=== PATIENT | male | born 1960 | race Caucasian/White ===

== ENCOUNTER 2022-09-01 02:25 | Emergency (ER) | payer OTHER ==
[~2022-09-01] VITALS: Ht 185.4 cm; Wt 115.7 kg
[2022-09-01] MEDS ORDERED: ONDANSETRON 4MG INJ IVP ONE (02:30)
[2022-09-01 02:53] LABS: BASOPHILS % (AUTO) 0.5 % (0.0-5.0); EOSINOPHILS % (AUTO) 0.9 % (0.0-8.0); HEMATOCRIT 45.3 % (42-54); LYMPHOCYTES % (AUTO) 7.8 % (21.0-51.0); MEAN CORPUSCULAR HEMOGLOBIN 30.3 pg (27.0-33.0); MEAN CORPUSCULAR VOLUME 94.8 fL (79-99); NEUTROPHILS % (AUTO) 82.3 % (40.0-77.0); PLATELET COUNT (AUTO) 232 K/uL (130-400); RED BLOOD CELL COUNT(AUTO) 4.78 MIL/uL (4.50-6.20); RED CELL DISTRIBUTION WIDTH 13.7 % (11.0-15.5); WHITE BLOOD COUNT (AUTO) 10.9 K/uL (4.8-10.8)
[2022-09-01] MEDS ORDERED: 0.9%NACL 1000ML 1,000 ML IV ONE (03:00)
[2022-09-01 03:03] LABS: CREATININE 0.9 mg/dL (0.5-1.5); POTASSIUM 3.8 mmol/L (3.5-5.1)
[2022-09-01 03:07] LABS: ALBUMIN 3.4 g/dL (3.5-5.0); TOTAL PROTEIN, SERUM 7.3 g/dL (6.0-8.3)
[2022-09-01 04:32] VITALS: BP 171/86
[2022-09-01] MEDS ORDERED: ONDA4TAB10 PO (05:42)
[2022-09-01] MEDS ORDERED: HYOS0.124 SL (05:42)
== END 2022-09-01 06:17 | disposition home or self-care (01) ==
LOC: EDH 02:25
DX: E86.9 Volume depletion, unspecified (principal); R10.10 Upper abdominal pain, unspecified; R11.10 Vomiting, unspecified
CPT/HCPCS: 99284; 80053; 83690; 85025; 36415; 74176; 96374; J2405

== ENCOUNTER 2022-09-14 02:22 | Emergency (ER) | payer OTHER ==
[~2022-09-14] VITALS: Ht 188 cm; Wt 163.3 kg
[~2022-09-14 02:22] MED LIST: HYOS0.124 SL; ONDA4TAB10 PO
[2022-09-14 02:57] LABS: BASOPHILS % (AUTO) 0.4 % (0.0-5.0); HEMATOCRIT 43.1 % (42-54); LYMPHOCYTES % (AUTO) 12.4 % (21.0-51.0); MEAN CORPUSCULAR HEMOGLOBIN 30.3 pg (27.0-33.0); MEAN CORPUSCULAR HGB CONC 32.5 g/dL (32.0-36.0); MEAN CORPUSCULAR VOLUME 93.3 fL (79-99); MONOCYTES % (AUTO) 10.3 % (3.0-13.0); NEUTROPHILS % (AUTO) 73.6 % (40.0-77.0); PLATELET COUNT (AUTO) 261 K/uL (130-400); RED BLOOD CELL COUNT(AUTO) 4.62 MIL/uL (4.50-6.20); RED CELL DISTRIBUTION WIDTH 13.8 % (11.0-15.5)
[2022-09-14 03:05] LABS: CREATININE 0.8 mg/dL (0.5-1.5); POTASSIUM 4.1 mmol/L (3.5-5.1)
[2022-09-14 03:09] LABS: TOTAL PROTEIN, SERUM 6.7 g/dL (6.0-8.3)
[2022-09-14] MEDS ORDERED: 0.9%NACL 1000ML 1,000 ML IV ONE (03:30)
[2022-09-14 04:05] LABS: APPEARANCE,URINE CLEAR (CLEAR); BILIRUBIN,URINE NEGATIVE (NEGATIVE); COLOR,URINE COLORLESS (YELLOW); GLUCOSE, URINE (UA) NEGATIVE (NEGATIVE); KETONES,URINE NEGATIVE (NEGATIVE); LEUKOCYTE ESTERASE ,URINE 25 Leu/uL (NEGATIVE); NITRATE,URINE 2+ (NEGATIVE); OCCULT BLOOD,URINE NEGATIVE (NEGATIVE); PH,URINE 5.5 (5.0-8.0); PROTEIN,URINE NEGATIVE (NEGATIVE); UROBILINOGEN,URINE 0.2 mg/dL (0.2-1.0)
[2022-09-14 04:53] LABS: BACTERIA,URINE MANY /HPF (None Seen); MUCUS,URINE RARE LPF (None Seen)
[2022-09-14] MEDS ORDERED: CEFTRIAXONE 1G VIAL IVP ONE (05:00)
[2022-09-14] MEDS ORDERED: CIPR-278 PO (06:56)
[2022-09-14] MEDS ORDERED: ONDANSETRON 4MG INJ IVP ONE (07:30)
[2022-09-14 08:29] VITALS: BP 145/89
== END 2022-09-14 08:31 | disposition home or self-care (01) ==
LOC: EDH 02:22
DX: N39.0 Urinary tract infection, site not specified (principal); R42 Dizziness and giddiness; I10 Essential (primary) hypertension; Z20.822 Contact with and (suspected) exposure to COVID-19; Z98.890 Other specified postprocedural states
CPT/HCPCS: 99285; 84484; 80053; 83880; 85025; 87077; 87088; 87186; 81001; 36415; 87635; 71045; 96374; 96361; 96375; 93005; C9803; J7030; J0696; J2405

== ENCOUNTER 2022-09-15 20:13 | Emergency (ER) | payer OTHER ==
[~2022-09-15] VITALS: Ht 188 cm; Wt 139.7 kg
[~2022-09-15 20:13] MED LIST changes: +CIPR-278 PO
[2022-09-15] MEDS: MAGNESIUM HYDROXIDE 30 ML/UDCUP PO PRN (21:01)
[2022-09-15 21:23] VITALS: BP 171/89
[2022-09-15] MEDS: PEG 3350/NA SULF,BICARB,CL/KCL 4000 ML SOLN PO ONE (21:40)
== END 2022-09-15 23:23 | disposition home or self-care (01) ==
LOC: EDH 20:13
DX: K59.00 Constipation, unspecified (principal); Z98.890 Other specified postprocedural states; Z79.899 Other long term (current) drug therapy
CPT/HCPCS: 82948

== ENCOUNTER 2024-04-22 12:10 | Emergency (ER) | payer OTHER ==
[~2024-04-22] VITALS: Ht 188 cm; Wt 113.4 kg
[~2024-04-22 12:10] MED LIST changes: +ASPI-1443 PO; -CIPR-278 PO; +CLOP75TA32 PO; -HYOS0.124 SL; -ONDA4TAB10 PO; +ROSU10TA72 PO
[2024-04-22] MEDS: GLYCERIN ADULT SUPP.RECT RC ONE (14:06)
[2024-04-22] MEDS: POLYETHYLENE GLYCOL 3350 17 GM POWD.PACK PO ONE (14:06)
[2024-04-22] MEDS ORDERED: POLY17PO4 PO (14:14)
[2024-04-22] MEDS ORDERED: DOCU-116 PO (14:14)
[2024-04-22] MEDS ORDERED: SODI133E14 RC (14:14)
[2024-04-22 14:38] VITALS: BP 123/81; PULSE 73; RESP 18; O2SAT 100
== END 2024-04-22 14:43 | disposition home or self-care (01) ==
LOC: EDH 12:10
DX: K59.00 Constipation, unspecified (principal); I50.9 Heart failure, unspecified; E78.00 Pure hypercholesterolemia, unspecified; Z79.82 Long term (current) use of aspirin; Z79.899 Other long term (current) drug therapy; Z98.890 Other specified postprocedural states

== ENCOUNTER 2024-06-04 21:32 | Emergency (ER) | payer OTHER ==
[~2024-06-04 21:32] MED LIST changes: +DOCU-116 PO; +POLY17PO4 PO; +SODI133E14 RC
[2024-06-04 22:36] LABS: BASOPHILS # (AUTO) 0.04 K/uL (0.00-0.20); BASOPHILS % (AUTO) 0.4 % (0.0-5.0); EOSINOPHILS # (AUTO) 0.11 K/uL (0.00-0.70); EOSINOPHILS % (AUTO) 1.2 % (0.0-8.0); HEMATOCRIT 43.8 % (42-54); IMMATURE GRANULOCYTE ABSOLUTE 0.03 K/uL (0-1); LYMPHOCYTES # (AUTO) 1.4 K/uL (1.0-4.8); LYMPHOCYTES % (AUTO) 14.6 % (21.0-51.0); MEAN CORPUSCULAR HEMOGLOBIN 30.9 pg (27.0-33.0); MEAN CORPUSCULAR HGB CONC 33.3 g/dL (32.0-36.0); MEAN CORPUSCULAR VOLUME 92.6 fL (79-99); MONOCYTES # (AUTO) 0.6 K/uL (0.1-1.0); MONOCYTES % (AUTO) 6.1 % (3.0-13.0); NEUTROPHILS # (AUTO) 7.3 K/uL (1.8-7.7); NEUTROPHILS % (AUTO) 77.4 % (40.0-77.0); PLATELET COUNT (AUTO) 266 K/uL (130-400); RED BLOOD CELL COUNT(AUTO) 4.73 MIL/uL (4.50-6.20); RED CELL DISTRIBUTION WIDTH 13.9 % (11.0-15.5); WHITE BLOOD COUNT (AUTO) 9.4 K/uL (4.8-10.8)
[2024-06-04 22:37] VITALS: BP 167/98; PULSE 90; RESP 18; TEMP 97.8; O2SAT 99
[2024-06-04 22:41] LABS: APPEARANCE,URINE CLEAR (CLEAR); BILIRUBIN,URINE NEGATIVE (NEGATIVE); COLOR,URINE COLORLESS (YELLOW); GLUCOSE, URINE (UA) NEGATIVE (NEGATIVE); KETONES,URINE NEGATIVE (NEGATIVE); LEUKOCYTE ESTERASE ,URINE 75 Leu/uL (NEGATIVE); NITRATE,URINE 2+ (NEGATIVE); OCCULT BLOOD,URINE NEGATIVE (NEGATIVE); PROTEIN,URINE NEGATIVE (NEGATIVE); UROBILINOGEN,URINE 0.2 mg/dL (0.2-1.0)
[2024-06-04 22:42] LABS: ADD UA MICROSCOPIC YES
[2024-06-04 22:43] LABS: BACTERIA,URINE RARE /HPF (None Seen); RBC,URINE 0-1 /HPF (0-1)
[2024-06-04 22:45] LABS: CARBON DIOXIDE 23 mmol/L (21-32); CHLORIDE 104 mmol/L (101-111); CREATININE 0.9 mg/dL (0.5-1.3); GLOMERULAR FILTR. RATE CALC 95 mL/min (>90); GLUCOSE,RANDOM 99 mg/dL (70-105); SODIUM SERUM 138 mmol/L (136-145); UREA NITROGEN, BLOOD 15 mg/dL (7-18)
[2024-06-04 22:47] LABS: ALCOHOL, BLOOD < 3 mg/dL (0-10); AMMONIA 14 umol/L (11-32)
[2024-06-04 22:49] LABS: AMPHET/METH SCREEN,URINE NEGATIVE (NEGATIVE); BARBITURATE SCREEN, URINE NEGATIVE (NEGATIVE); BENZODIAZEPINES SCREEN,URINE NEGATIVE (NEGATIVE); CANNABINOID SCREEN,URINE NEGATIVE (NEGATIVE); COCAINE SCREEN,URINE NEGATIVE (NEGATIVE); OPIATE SCREEN,URINE NEGATIVE (NEGATIVE); PHENCYCLIDINE SCREEN,URINE NEGATIVE (NEGATIVE)
--- NOTE | 2024-06-04 23:24 | ERN ---
General Chief Complaint: Other Problems Stated Complaint: SENT IN FOR EVALUATION BY KRYSTINA RIDER Time Seen by MD: 21:41 Time Seen by Midlevel: 21:41 Source: patient, police, EMS History of Present Illness Initial Comments Patient is a 63-year-old male being brought in via EMS and escorted by PD for a wellness examination. According to the police department patient was driving erratically so he was pulled over and sent to the ER for further evaluation. On arrival patient has no complaints. Allergies: Coded Allergies: No Known Drug Allergies (Unverified Allergy, Unknown, 09/01/22) Home Meds Active Scripts Na Phos,M-B/Na Phos,Di-Ba (Enema Ready To Use) 19 Gram-7 Gram/118 Ml Enema, 133 ML RC ONCE, #1 ENEMA Prov:YASMINE DRAKE 04/22/24 Polyethylene Glycol 3350 (Miralax) 17 Gram Powd.pack, 17 GM PO DAILY for constipation for 20 Days, #20 PACKET 0 Refills Prov:YASMINE DRAKE 04/22/24 Docusate Sodium (Colace) 100 Mg Capsule, 100 MG PO TID for constipation for 10 Days, #30 CAP 0 Refills Prov:YASMNIE DRAKE 04/22/24 Reported Medications Rosuvastatin Calcium (Rosuvastatin Calcium) 10 Mg Tablet, 1 TAB PO HS 12/16/23 Aspirin (Aspirin EC) 81 Mg Tablet.dr, 81 MG PO HS, TAB 11/08/23 Clopidogrel Bisulfate (Clopidogrel) 75 Mg Tablet, 75 MG PO HS, TAB 11/08/23 Past Medical History Past Medical History: CHF, High Cholesterol Past Surgical History: Other Surgical History Other: NECK FUSION, 2 STENTS IN NECK Family History Family History: Negative Social History Social History: Negative, Other ROS Dictation CONSTITUTIONAL: Negative except for HPI HEAD/FACE: Negative except for HPI EENT: Negative except for HPI RESPIRATORY: Negative except for HPI GASTROINTESTINAL/ABDOMINAL: Negative except for HPI GENITOURINARY: Negative except for HPI MUSCULOSKELETAL: Negative except for HPI INTEGUMENTARY: Negative except for HPI NEUROLOGICAL/PSYCH: Negative except for HPI HEMATOLOGIC/LYMPHATIC: Negative except for HPI All Systems Negative, Except as noted above. 13 point review of systems assessed and all negative except for above. Physical Exam Physical Exam Dictation Vital Signs reviewed General Appearance: Alert, oriented x 3, no acute distress, well developed, nourished. Head and Face: non-traumatic. Eyes: PERRL, pink conjunctivas, eyelid no trauma, anterior chamber with arcus senilis. Ears: Pinnas intact and no signs of trauma or erythema ear canals clear and no discharge TM no erythema Nose: No discharge, no bleeding. Oropharynx: Mouth normal, tongue pink, pharynx clear,no erythema, tonsils no exudates, no abscesses noted, mucous membrane moist Neck: Supple, non-tender, no thyromegaly, no masses, no JVD, no bruits Breast:Deferred Chest:No tenderness, no crepitus, no paradoxical movement, no retractions Lungs:Clear, well-ventilated, symmetric, no rales, no wheezing, no rhonchi, no stridor, good breath sounds bilaterally Heart: Regular rate, regular rhythm, no murmur, no gallops Vascular: no peripheral edema, Abdomen: Soft, positive bowel sounds, nondistended, no guarding, nontender, no rebound, no masses no hepatomegaly, no splenomegaly, no De León's sign, no hernias. Rectal: Deferred Genital: Deferred Neurological: Normal speech, motor function intact, sensory function intact , flight of ideas Musculoskeletal: Neck nontender, full range of motion, back nontender, full range of motion, Extremities: nontender, full range of motion Skin: Color pink, dry, no turgor, no rash, no lacerations, no abrasions, no contusions. Lymphatic: Deferred Results Laboratory and Microbiology Lab and Micro Result Laboratory Tests Test 06/04/24 22:26 White Blood Count 9.4 K/uL (4.8-10.8) Red Blood Count 4.73 MIL/uL (4.50-6.20) Hemoglobin 14.6 g/dL (14.0-18.0) Hematocrit 43.8 % (42-54) Mean Corpuscular Volume 92.6 fL (79-99) Mean Corpuscular Hemoglobin 30.9 pg (27.0-33.0) Mean Corpuscular Hemoglobin Concent 33.3 g/dL (32.0-36.0) Red Cell Distribution Width 13.9 % (11.0-15.5) Platelet Count 266 K/uL (130-400) Mean Platelet Volume 10.3 fL (7.5-10.5) Immature Granulocyte % (Auto) 0.3 % (0-1) Neutrophils (%) (Auto) 77.4 % (40.0-77.0) H Lymphocytes (%) (Auto) 14.6 % (21.0-51.0) L Monocytes (%) (Auto) 6.1 % (3.0-13.0) Eosinophils (%) (Auto) 1.2 % (0.0-8.0) Basophils (%) (Auto) 0.4 % (0.0-5.0) Neutrophils # (Auto) 7.3 K/uL (1.8-7.7) Lymphocytes # (Auto) 1.4 K/uL (1.0-4.8) Monocytes # (Auto) 0.6 K/uL (0.1-1.0) Eosinophils # (Auto) 0.11 K/uL (0.00-0.70) Basophils # (Auto) 0.04 K/uL (0.00-0.20) Absolute Immature Granulocyte (auto 0.03 K/uL (0-1) Nucleated Red Blood Cells 0.0 % (0.0-0.19) Urine Color COLORLESS (YELLOW) Urine Appearance CLEAR (CLEAR) Urine pH 6.0 (5.0-8.0) Urine Specific [place] 1.004 (1.001-1.031) Urine Protein NEGATIVE mg/dL (NEGATIVE) Urine Glucose (UA) NEGATIVE mg/dL (NEGATIVE) Urine Ketones NEGATIVE mg/dL (NEGATIVE) Urine Occult Blood NEGATIVE (NEGATIVE) Urine Nitrate 2+ (NEGATIVE) H Urine Bilirubin NEGATIVE mg/dL (NEGATIVE) Urine Urobilinogen 0.2 mg/dL (0.2-1.0) Urine Leukocyte Esterase 75 Antonio/uL (NEGATIVE) H Urine RBC 0-1 /HPF (0-1) Urine WBC 11-25 /HPF (0-1) H Urine Bacteria RARE /HPF (None Seen) Sodium Level 138 mmol/L (136-145) Potassium Level 4.0 mmol/L (3.5-5.1) Chloride Level 104 mmol/L (101-111) Carbon Dioxide Level 23 mmol/L (21-32) Blood Urea Nitrogen 15 mg/dL (7-18) Creatinine 0.9 mg/dL (0.5-1.3) Glomerular Filtration Rate Calc 95 mL/min (>90) Random Glucose 99 mg/dL (70-105) Total Calcium 9.4 mg/dL (8.5-10.1) Ammonia 14 umol/L (11-32) Troponin I High Sensitivity 205 ng/L (4-75) *H Urine Opiates Screen NEGATIVE (NEGATIVE) Urine Barbiturates Screen NEGATIVE (NEGATIVE) Urine Phencyclidine Screen NEGATIVE (NEGATIVE) Urine Amphetamines Screen NEGATIVE (NEGATIVE) Urine Benzodiazepines Screen NEGATIVE (NEGATIVE) Urine Cocaine Screen NEGATIVE (NEGATIVE) Urine Marijuana (THC) Screen NEGATIVE (NEGATIVE) Serum Alcohol < 3 mg/dL (0-10) Labs Reviewed?: Yes MDM MDM: Patient is a 63-year-old male being brought in via EMS and escorted by PD for a wellness examination. According to the police department patient was driving erratically so he was pulled over and sent to the ER for further evaluation. On arrival patient has no complaints. His initial vital signs are remarkable for a temperature of 98.1. Heart rate of 100 beats per minute. Respiratory rate of 20 breaths per minute. A blood pressure of 142/89. A pulse ox of 98% on room air. On physical examination patient is able to answer simple questions however he was flight of ideas. Patient is not have any family with him and states he lives alone in [place]. We do not know his baseline at this time. We do not know if his flight of ideas are new or if this is his baseline. His initial CBC is unremarkable. His chemistries are unremarkable. His initial troponin is elevated at 205. We attempted to obtain an EKG however patient is refusing. A CT scan of the head was also ordered however patient is refusing a CT scan. He states that he will now be allowing any of the staff to take him to CT. His urine drug screen is negative. At this time patient continues to refuse treatment. Our plan was to admit patient for an elevated troponin however Patient would like to sign out against medical advice. Risks were discussed with the patient and he understands and would still like to sign out against medical advice. Differential diagnosis: Altered mental status, subdural hematoma, electrolyte abnormality, urinary tract infection Rationale: Tests considered and ordered secondary to shared decision making include: Previous outside records reviewed: Old ER visits. Risk of complication and/or morbidity or mortality of patient management: None Medications-Per medication reconciliation Need for hospitalization: Patient does meet criteria for hospitalization. Need for emergency major/minor surgery: No There are no social concerns with this patient. Prescription drug management Prescriptions will include symptomatic care Patient's prior external medical records from other ER visits were reviewed by me as indicated. Prior testing and results from previous visits were reviewed. Prior tests were taken into account with medical decision making and resource utilization, independent historian/historians were used to obtain complete medical history. I independently interpreted the test that were performed, results were reviewed by me and considered findings on radiology if ordered. Medical management and examination interpretation discussions were had by me with other qualified healthcare professionals as indicated for the patient's care. ED Course Orders Procedure Category Date Status Time Cbc With Differential LAB 06/04/24 Complete 21:41 Drug Screen Urine LAB 06/04/24 Complete 21:41 Urinalysis Profile LAB 06/04/24 Complete 21:41 12 Lead Ekg Tracing- EKG 06/04/24 Logged Technical 22:21 Ammonia LAB 06/04/24 Complete 22:21 Troponin I High LAB 06/04/24 Complete Sensitivity 22:21 Basic Metabolic Panel LAB 06/04/24 Complete 22:26 Alcohol, Blood LAB 06/04/24 Complete 22:26 Culture Urine URBANO 06/04/24 In Process 22:42 Vital Signs Date Time Temp Pulse Resp B/P (MAP) Pulse Ox O2 Delivery O2 Flow Rate FiO2 06/04/24 22:37 97.9 90 18 167/98 99 Room Air* 0 21 06/04/24 21:36 98.1 100 20 142/89 98 Room Air 0 DX & DISP Disposition: AMA Departure Impression: Primary Impression: Wellness examination Additional Impression: Elevated troponin Condition: Stable Referrals: SELF,REFERRAL (PCP) Time of Disposition: 23:37 I have reviewed the case, and I agree with, Diagnosis and Plan YASMINE DRAKE Jun 04, 2024 23:24
--- NOTE | 2024-06-04 23:34 | NUR ---
PT REFUSED TO GET CT HEAD AND EKG TO BE DONE. PATIENT WANTS TO LEAVE AMA. YASMINE FERNANDEZ ADVISED PATIENT TO STAY DUE TO ELEVATED TROPONIN. PATIENT REFUSED ADMISSION. PT INFORMED OF RISK OF LEAVING AMA. PT ADAMANT ON LEAVING. PT SIGNED AMA FORM.
[2024-06-06] MEDS ORDERED: NICO-704 TD (11:01)
[2024-06-06] MEDS ORDERED: LISI20TA24 PO (11:01)
[2024-06-06] MEDS ORDERED: NITR0.4T50 SL (11:01)
[2024-06-06] MEDS ORDERED: METO25 PO (11:01)
[2024-06-06] MEDS ORDERED: CEFD300C3 PO (11:02)
== END 2024-06-04 23:30 | disposition left against medical advice (07) ==
LOC: EDH 21:32
DX: R79.89 Other specified abnormal findings of blood chemistry (principal); E78.00 Pure hypercholesterolemia, unspecified; I50.9 Heart failure, unspecified; Z79.02 Long term (current) use of antithrombotics/antiplatelets; Z79.82 Long term (current) use of aspirin; Z79.899 Other long term (current) drug therapy
CPT/HCPCS: 36415; 80048; 80305; 81001; 82140; 84484; 85025; 87086; 87186